=== PATIENT | female | born 1935 | race Caucasian/White ===

== ENCOUNTER → 2023-10-12 12:47 | Outpatient (REF) | payer OTHER, SELFPAY | LOC: PAVMRI 12:47 | PROVIDERS: ATTENDING PHYSICIAN Otolaryngology Otolaryngology/Facial Plastic Surgery; FAMILY PHYSICIAN Internal Medicine | DX: R22.1 Localized swelling, mass and lump, neck (principal) | CPT/HCPCS: 70540 ==